=== PATIENT | male | born 1955 | race Caucasian/White ===

== ENCOUNTER 2021-06-14 11:18 | Day surgery (SDC) | payer MEDICARE ==
[2021-06-14] MEDS ORDERED: Depo-Medrol 40 MG/ML IM ONE (11:19)
[2021-06-14] MEDS ORDERED: LIDOCAINE HCL 2% 100 MG/5 ML IJ ONE (11:19)
[2021-06-14] MEDS ORDERED: Xylocaine 1% Vial 30 ML PF IJ ONE (11:19)
--- NOTE | 2021-06-14 15:06 | XRAY ---
Indication: Bilateral L4-S1 MBB. Intraoperative fluoroscopy provided for 35 seconds. Single digital spot image submitted for interpretation demonstrates posterior needle tips projecting over the expected left and right L4-S1 nerve roots. Correlate with intraoperative findings/report.
--- NOTE | 2021-06-14 15:11 | XRAY ---
35 seconds fluoroscopy time in surgery for bilateral L4-S1 MBB.
== END 2021-06-14 13:50 | disposition home or self-care (01) ==
LOC: SDC-PAIN 11:18
PROVIDERS: ATTEND Psychiatry & Neurology Pain Medicine
DX: M47.816 Spondylosis without myelopathy or radiculopathy, lumbar region (principal); E11.9 Type 2 diabetes mellitus without complications; I10 Essential (primary) hypertension; Z79.899 Other long term (current) drug therapy
CPT/HCPCS: 64493; 64494; 72020; 77002; 82947; J1030; J2001

== ENCOUNTER 2021-07-05 13:29 | Day surgery (SDC) | payer MEDICARE ==
[2021-07-05] MEDS ORDERED: Xylocaine 1% Vial 30 ML PF IJ ONE (13:30)
[2021-07-05] MEDS ORDERED: Depo-Medrol 40 MG/ML IM ONE (13:30)
[2021-07-05] MEDS ORDERED: BUPIVACAINE 0.5% VIAL IJ ONE (13:30)
--- NOTE | 2021-07-05 17:05 | XRAY ---
Indication: Bilateral L4-S1 MBB. Intraoperative fluoroscopy provided for 38 seconds. Single digital spot image submitted for interpretation demonstrates posterior needle tips projecting over the expected left and right L4-S1 nerve roots. Correlate with intraoperative findings/report.
--- NOTE | 2021-07-05 17:08 | XRAY ---
38 seconds fluoroscopy time in surgery for bilateral L4-S1 MBB.
== END 2021-07-05 16:50 | disposition home or self-care (01) ==
LOC: SDC-PAIN 13:29
PROVIDERS: ATTEND Psychiatry & Neurology Pain Medicine
DX: M47.816 Spondylosis without myelopathy or radiculopathy, lumbar region (principal); E11.9 Type 2 diabetes mellitus without complications; Z79.899 Other long term (current) drug therapy
CPT/HCPCS: 64493; 64494; 72020; 77002; 82947; J1030; J2001

== ENCOUNTER 2021-07-19 15:45 | Day surgery (SDC) | payer MEDICARE ==
[2021-07-19] MEDS ORDERED: Marcaine Mpf 0.5% Vial 30 Ml IJ ONE (15:46)
[2021-07-19] MEDS ORDERED: Depo-Medrol 40 MG/ML IM ONE (15:46)
[2021-07-19] MEDS ORDERED: Xylocaine 1% Vial 30 ML PF IJ ONE (15:46)
[2021-07-19] MEDS ORDERED: Lactated Ringers 1,000 ML IV ONE (16:38)
--- NOTE | 2021-07-19 19:44 | XRAY ---
Indication: Right L4-S1 RFA. Intraoperative fluoroscopy provided for 24 seconds. 4 digital spot image submitted for interpretation demonstrates posterior needle tips projecting over the expected right L4-S1 nerve roots. Correlate with intraoperative findings/report.
--- NOTE | 2021-07-20 08:55 | XRAY ---
24 seconds fluoroscopy time in surgery for right L4-S1 RFA.
== END 2021-07-19 18:27 | disposition home or self-care (01) ==
LOC: SDC-PAIN 15:45
PROVIDERS: ATTEND Psychiatry & Neurology Pain Medicine
DX: M47.816 Spondylosis without myelopathy or radiculopathy, lumbar region (principal); E11.9 Type 2 diabetes mellitus without complications; Z79.899 Other long term (current) drug therapy
CPT/HCPCS: 64635; 64636; 72100; 77002; 82947; J1030; J2001

== ENCOUNTER 2021-07-26 11:23 | Day surgery (SDC) | payer MEDICARE ==
[2021-07-26] MEDS ORDERED: Xylocaine 1% Vial 30 ML PF IJ ONE (11:24)
[2021-07-26] MEDS ORDERED: Depo-Medrol 40 MG/ML IM ONE ×2 (11:24)
[2021-07-26] MEDS ORDERED: Sensorcaine 0.25% 10 ML IJ ONE (11:24)
[2021-07-26] MEDS ORDERED: Marcaine Mpf 0.5% Vial 30 Ml IJ ONE (11:24)
[2021-07-26] MEDS ORDERED: Lactated Ringers 1,000 ML IV ONE (14:02)
--- NOTE | 2021-07-26 14:02 | XRAY ---
Indication: Left L4-S1 RFA. Intraoperative fluoroscopy provided for 30 seconds. 4 digital spot images submitted for interpretation demonstrates posterior needle tips projecting over the expected left L4-S1 nerve roots. Correlate with intraoperative findings/report.
--- NOTE | 2021-07-26 14:54 | XRAY ---
30 seconds fluoroscopy time in surgery for left L4-S1 RFA.
== END 2021-07-26 13:33 | disposition home or self-care (01) ==
LOC: SDC-PAIN 11:23
PROVIDERS: ATTEND Psychiatry & Neurology Pain Medicine
DX: M47.816 Spondylosis without myelopathy or radiculopathy, lumbar region (principal); E11.9 Type 2 diabetes mellitus without complications; Z79.899 Other long term (current) drug therapy
CPT/HCPCS: 64635; 64636; 72100; 77002; 82947; J1030; J2001

== ENCOUNTER 2022-04-25 12:28 | Day surgery (SDC) | payer MEDICARE ==
[2022-04-25] MEDS ORDERED: Sodium Chloride 0.9(Preservative Free) 10 ML IJ ONE (12:29)
[2022-04-25] MEDS ORDERED: LIDOCAINE HCL 1% 50 MG/5 ML VL PF IJ ONE (12:29)
[2022-04-25] MEDS ORDERED: Depo-Medrol 40 MG/ML IM ONE (12:29)
[2022-04-25] MEDS ORDERED: Lactated Ringers 1,000 ML IV ONE (15:57)
--- NOTE | 2022-04-25 16:52 | XRAY ---
Indication: Lumbar KEVYN. Intraoperative fluoroscopy provided for 21 seconds. 2 digital spot image submitted for interpretation demonstrates posterior needle tip projecting just posterior to lumbosacral junction. Small amount of contrast injected for needle tip placement. Correlate with intraoperative findings/report.
--- NOTE | 2022-04-26 08:39 | XRAY ---
21 seconds of fluoroscopy was used in surgery for a lumbar KEVYN.
== END 2022-04-25 15:20 | disposition home or self-care (01) ==
LOC: SDC-PAIN 12:28
PROVIDERS: ATTEND Psychiatry & Neurology Pain Medicine
DX: M54.16 Radiculopathy, lumbar region (principal); E11.9 Type 2 diabetes mellitus without complications; Z79.899 Other long term (current) drug therapy
CPT/HCPCS: 62323; 72100; 77003; 82947; J1030; J2001; Q9966